=== PATIENT | male | born 1955 | race African-American/Black ===

== ENCOUNTER → 2024-08-27 | Day surgery (SDC) | payer MEDICARE ==
[2024-08-22 14:31] LABS: BASOPHILS % 0.5 % (0.0-1.0); EOSINOPHILS # (AUTO) 0.1 (0.0-0.4); EOSINOPHILS % 1.8 % (0.0-6.0); HEMOGLOBIN 10.1 g/dL (14.0-18.0); LYMPHOCYTES # (AUTO) 1.1 (1.0-3.2); LYMPHOCYTES % 19.3 % (18.0-39.1); MEAN CORPUSCULAR HEMOGLOBIN 32.9 pg (28-32); MEAN CORPUSCULAR HGB CONC 32.6 g/dL (31-35); MONOCYTES # (AUTO) 0.6 (0.2-0.8); MONOCYTES % 9.6 % (4.4-11.3); NEUTROPHILS # (AUTO) 3.9 (2.1-6.9); NEUTROPHILS % 68.6 % (38.7-80.0); PLATELET COUNT 355 x10e3/uL (140-360); RED BLOOD COUNT 3.07 x10e6/uL (4.3-5.7); RED CELL DISTRIBUTION WIDTH 15.7 % (11.7-14.4); WHITE BLOOD COUNT 5.71 x10e3/uL (4.8-10.8)
[2024-08-22 14:44] LABS: INR 0.95; PARTIAL THROMBOPLASTIN TIME 27.1 seconds (23.8-35.5); PROTHROMBIN TIME 13.5 seconds (11.9-14.5)
[2024-08-22 14:53] LABS: ANION GAP 14.4 mmol/L (8-16); CREATININE, SERUM 1.88 mg/dL (0.72-1.25); POTASSIUM 4.4 mmol/L (3.5-5.1)
[~2024-08-27] MED LIST: ACETAMINOPHEN 1000 MG/100 ML 100 ML IV ONE; CARVEDILOL3.125 MG PO; CLONIDINE HCL0.2 MG PO; DIPHENOXYLATE-1 EACH PO; DOXAZOSIN MESYLA2 MG PO; FAMOTIDINE 20 MG/2 ML VIAL IV ONE; FENTANYL CITRATE/PF 100MCG/2 ML INJ ONE; HYDRALAZINE HC100 MG PO; HYDRALAZINE HCL25 MG PO; HYDROCODON-ACE1 EAC9 PO; LIDOCAINE HCL 2% LOCAL INJ 5 ML SDV VIAL INJ ONE; METOPROLOL TART50 MG PO; MIDAZOLAM HCL 2 MG/2 ML VIAL ONE; ONDANSETRON HCL INJ 2MG/ML 2ML 2 MG/ML VIAL ONE; PLAVIX75 MG PO; PROPOFOL IV EMULSION 10 MG/ML 20 ML VIAL ONE; SEVOFLURANE INHAL SOLN 250 ML PEN BTL ONE
[2024-08-27] MEDS: LACTATED RINGER'S 1,000 ML ONE (09:51)
[2024-08-27 12:19] VITALS: TEMP 98.2
[2024-08-27] MEDS: HYDROMORPHONE 1MG/1ML INJ ONE (12:30)
[2024-08-27] MEDS: MEPERIDINE HCL INJ 25 MG/ML VIAL ONE (12:30)
[2024-08-27] MEDS: HYDROCODONE/APAP 7.5MG-325MG 1 EA TAB ONE (13:13)
[2024-08-27 13:20] VITALS: BP 153/83; PULSE 86; RESP 16; O2SAT 98
== END | disposition home or self-care (01) ==
LOC: OR 09:23
PROVIDERS: ATTEND Specialist
DX: S82.031A Displaced transverse fracture of right patella, initial encounter for closed fracture (principal); M94.261 Chondromalacia, right knee; V00.831A Fall from motorized mobility scooter, initial encounter; Y92.512 Supermarket, store or market as the place of occurrence of the external cause; I10 Essential (primary) hypertension; Z87.891 Personal history of nicotine dependence; I48.91 Unspecified atrial fibrillation; K21.9 Gastro-esophageal reflux disease without esophagitis; G40.909 Epilepsy, unspecified, not intractable, without status epilepticus; E11.51 Type 2 diabetes mellitus with diabetic peripheral angiopathy without gangrene; N28.9 Disorder of kidney and ureter, unspecified; F32.A Depression, unspecified; R94.31 Abnormal electrocardiogram [ECG] [EKG]; Z01.810 Encounter for preprocedural cardiovascular examination; Z01.812 Encounter for preprocedural laboratory examination; Z01.818 Encounter for other preprocedural examination; Z79.899 Other long term (current) drug therapy; Z79.02 Long term (current) use of antithrombotics/antiplatelets
CPT/HCPCS: 36415; 71046; 76000; 80048; 82948; 85025; 85610; 85730; 93005; J0690; J1171; J1308; J2003; J2175; J2250; J2405